=== PATIENT | male | born 1970 | race Hispanic/Latino ===

== ENCOUNTER 2022-11-20 21:18 | Inpatient (IN) | payer BC, SELFPAY ==
[2022-11-20] MEDS ORDERED: ASPIRIN 81 MG CHEWABLE TABLET ONE (22:00)
[2022-11-20] MEDS ORDERED: NA CHLORIDE 0.9% 1,000 ML ONE (22:00)
[2022-11-20 22:10] LABS: Absolute Lymphocytes (CBC) 0.6 K/uL (0.7-4.9); Hematocrit 46.7 % (39.6-49.0); Lymphocytes % 4.9 % (15.3-44.8); MCV 88.8 fL (80-100); MPV 9.2 fL (7.6-11.3); RBC Red Blood Cell Count 5.26 M/uL (4.33-5.43)
[2022-11-20 22:13] LABS: Protime INR 0.99
--- NOTE | 2022-11-20 22:22 | ER ---
Nurse's Notes [facility] Name: Rik Mills Jr Age: 52 yrs Sex: Male : 1970 Arrival Date: 11/20/2022 Time: 21:19 Bed 19 Private MD: Diagnosis: Syncope Near;Essential (primary) hypertension;Chest pain, unspecified;Tachycardia, unspecified;Non ST elevation [place];Hypokalemia;Cocaine abuse Presentation: 11/20 21:26 Chief complaint: Patient states: I took an energy pill around 3:00 before I went to [employer] work. I am working nights right now. I passed out at work. I work at [employer]. I am not sure if i am just dehydrated or what. Coronavirus screen: Vaccine status: Patient reports receiving the 2nd dose of the covid vaccine. Ebola Screen: No symptoms or risks identified at this time. 21:26 Method Of Arrival: Ambulatory 3 21:39 Initial Sepsis Screen: Does the patient meet any 2 criteria? No. Patient's initial bb sepsis screen is negative. Does the patient have a suspected source of infection? No. Patient's initial sepsis screen is negative. Risk Assessment: Do you want to hurt yourself or someone else? Patient reports no desire to harm self or others. Onset of symptoms was November 20, 2022. 21:39 Acuity: CARSON 3 bb Historical: - Allergies: 21:39 No Known Allergies; bb - Home Meds: 21:39 None [Active]; bb - PMHx: 21:39 Hypertensive disorder; bb - PSHx: 21:39 None; bb - Immunization history:: Client reports receiving the Hao \T\ Hao single-dose vaccine. - Social history:: Smoking status: Patient denies any tobacco usage or history of. Patient/guardian denies using alcohol, street drugs. Screenin:46 [facility] ED Fall Risk Assessment (Adult) History of falling in the last 3 months, lg3 including since admission No falls in past 3 months (0 pts). Abuse screen: Denies threats or abuse. Denies injuries from another. Nutritional screening: No deficits noted. Tuberculosis screening: No symptoms or risk factors identified. Assessment: 21:46 General: Appears in no apparent distress. comfortable, Behavior is cooperative, lg3 anxious. Pain: Complains of pain in chest Pain does not radiate. Pain currently is 2 out of 10 on a pain scale. Quality of pain is described as throbbing, Pain began 2 hours ago. Neuro: No deficits noted. Palma Agitation-Sedation Scale (RASS): 0 - Alert and Calm Level of Consciousness is awake, alert, obeys commands, Oriented to person, place, time, situation. Cardiovascular: No deficits noted. Capillary refill < 3 seconds Clubbing of nail beds is absent JVD is absent Patient's skin is warm and dry. Rhythm is sinus tachycardia. Respiratory: No deficits noted. Airway is patent Trachea midline Respiratory effort is even, unlabored, Respiratory pattern is regular, symmetrical. GI: No deficits noted. No signs and/or symptoms were reported involving the gastrointestinal system. Abdomen is round non-distended. : No deficits noted. No signs and/or symptoms were reported regarding the genitourinary system. EENT: No deficits noted. No signs and/or symptoms were reported regarding the EENT system. Derm: No deficits noted. No signs and/or symptoms reported regarding the dermatologic system. Skin is intact, is healthy with good turgor, Skin is dry, Skin is normal. Musculoskeletal: No deficits noted. No signs and/or symptoms reported regarding the musculoskeletal system. Circulation, motion, and sensation intact. Range of motion: intact in all extremities. 22:47 Reassessment: Patient appears in no apparent distress at this time. No changes from lg3 previously documented assessment. Patient and/or family updated on plan of care and expected duration. Pain level reassessed. Patient is alert, oriented x 3, equal unlabored respirations, skin warm/dry/pink. Vital Signs: 21:29 Pulse 109; Resp 16; Temp 98.0(O); Pulse Ox 100% on R/A; kd3 21:40 Weight 81.65 kg; Height 5 ft. 7 in. (170.18 cm) (R); Pain 6/10; bb 21:45 BP 172 / 95; Pulse 111; Resp 17; Pulse Ox 99% on R/A; lg3 22:46 BP 163 / 99; Pulse 113; Resp 16; Pulse Ox 98% on R/A; lg3 23:50 BP 155 / 95; Pulse 80; Resp 18; Pulse Ox 99% on R/A; lg3 21:40 Body Mass Index 28.19 (81.65 kg, 170.18 cm) bb ED Course: 21:19 Patient arrived in ED. am2 21:36 Baljit Joy MD is Attending Physician. rehan 21:39 Triage completed. bb 21:39 Arm band placed on Patient placed in an exam room, on a stretcher, on classroom monitor, bb on pulse oximetry. EKG completed in triage. Results shown to MD. 21:46 Patient has correct armband on for positive identification. Placed in gown. Bed in low lg3 position. Call light in reach. Side rails up X 1. Client placed on continuous cardiac and pulse oximetry monitoring. NIBP monitoring applied. nurse monitoring on. Door closed. Noise minimized. Warm blanket given. 21:46 Inserted saline lock: 20 gauge in right antecubital area, using aseptic technique. lg3 Blood collected. Patient maintains SpO2 saturation greater than 95% on room air. 21:50 Terra Coker, RN is Primary Nurse. lg3 21:50 SARS RAPID Sent. lg3 21:50 Basic Metabolic Panel Sent. lg3 21:50 CBC with Diff Sent. lg3 21:50 LFT's Sent. lg3 21:50 Magnesium Sent. lg3 21:50 NT PRO-BNP Sent. lg3 21:50 PT-INR Sent. lg3 21:50 Troponin HS Sent. lg3 22:21 Martin Ames MD is Hospitalizing Provider. [facility] 22:22 XRAY Chest (1 view) In Process Unspecified. EDMS 22:43 UDS Sent. lg3 23:05 CT Head Brain wo Cont In Process Unspecified. EDMS 23:05 CT Aorta for Dissection In Process Unspecified. EDMS 23:53 No provider procedures requiring assistance completed. Patient admitted, IV remains in lg3 place. Administered Medications: 22:10 Drug: NS 0.9% 1000 ml Route: IV; Rate: 1 bolus; Site: right antecubital; lg3 23:49 Follow up: Response: No adverse reaction; IV Status: Completed infusion; IV Intake: lg3 1000ml 22:10 Drug: Aspirin Chewable Tablet 162 mg Route: PO; lg3 22:43 Follow up: Response: No adverse reaction lg3 22:43 Drug: morphine 4 mg Route: IVP; Infused Over: 4 mins; Site: right antecubital; lg3 23:49 Follow up: Response: No adverse reaction; Pain is decreased lg3 22:43 Drug: Zofran (Ondansetron) 4 mg Route: IVP; Site: right antecubital; lg3 23:49 Follow up: Response: No adverse reaction lg3 22:43 Drug: Lopressor (metoprolol TARTRATE) 50 mg Route: PO; lg3 23:49 Follow up: Response: No adverse reaction lg3 22:43 Drug: Lisinopril 10 mg Route: PO; lg3 23:48 Follow up: Response: No adverse reaction lg3 23:05 Drug: Lovenox (enoxaparin) 1 mg/kg Route: Sub-Q; Site: abdomen; lg3 23:48 Follow up: Response: No adverse reaction lg3 23:05 Drug: Pepcid (famotidine) 20 mg Route: IVP; Site: right antecubital; lg3 23:48 Follow up: Response: No adverse reaction lg3 23:05 Drug: Ativan (LORazepam) 1 mg Route: PO; lg3 23:48 Follow up: Response: No adverse reaction; Anxiety decreased lg3 23:06 Drug: Magnesium Sulfate 1 grams Route: IVPB; Infused Over: 1 hrs; Site: right lg3 antecubital; 23:48 Follow up: Response: No adverse reaction; IV Status: Completed infusion; IV Intake: lg3 100ml 23:06 Drug: Potassium Effervescent Tablet 50 mEq Route: PO; lg3 23:48 Follow up: Response: No adverse reaction lg3 Medication: 22:47 VIS not applicable for this client. lg3 Intake: 23:48 IV: 100ml; Total: 100ml. lg3 23:49 IV: 1000ml; Total: 1100ml. lg3 Outcome: 22:22 Decision to Hospitalize by Provider. rehan 23:53 Admitted to ER Hold. Please see [facility] for further documentation. lg3 23:53 Condition: stable 23:53 Instructed on the need for admit. 11/21 10:47 Patient left the ED. vg1 Signatures: Dispatcher [employer] Baljit Le MD MD cha Ballard, Brenda, RN Shona Klein Lacie RN JINA lg3 Carmen Mills RN JINA vg1 Natalya Lipscomb RN RN kd3
--- NOTE | 2022-11-20 22:22 | EDPHYS ---
Physician Documentation [facility] Name: Rik Mills Jr Age: 52 yrs Sex: Male : 1970 Arrival Date: 11/20/2022 Time: 21:19 Bed 19 Private MD: ED Physician Baljit Joy HPI: 11/20 22:17 This 52 yrs old Male presents to ER via Ambulatory with complaints of Chest rehan Pain, Passed Out Prior To Arrival, Palpitations. 22:17 The patient or guardian reports chest pain that is located primarily in the substernal rehan area, anterior chest wall. Onset: just prior to arrival. The pain does not radiate. Associated signs and symptoms: Pertinent positives: syncope. The chest pain is described as a pressure, squeezing. Severity of pain: At its worst the pain was moderate in the emergency department the pain has improved mildly. The patient has not experienced similar symptoms in the past. Historical: - Allergies: 21:39 No Known Allergies; bb - Home Meds: 21:39 None [Active]; bb - PMHx: 21:39 Hypertensive disorder; bb - PSHx: 21:39 None; bb - Immunization history:: Client reports receiving the Hao \T\ Hao single-dose vaccine. - Social history:: Smoking status: Patient denies any tobacco usage or history of. Patient/guardian denies using alcohol, street drugs. ROS: 22:18 Constitutional: Negative for fever, chills, and weight loss, Eyes: Negative for injury, rehan pain, redness, and discharge, ENT: Negative for injury, pain, and discharge, Neck: Negative for injury, pain, and swelling, Respiratory: Negative for shortness of breath, cough, wheezing, and pleuritic chest pain, Abdomen/GI: Negative for abdominal pain, nausea, vomiting, diarrhea, and constipation, Back: Negative for injury and pain, : Negative for injury, bleeding, discharge, and swelling, MS/Extremity: Negative for injury and deformity, Skin: Negative for injury, rash, and discoloration, Neuro: Negative for headache, weakness, numbness, tingling, and seizure, Psych: Negative for depression, anxiety, suicide ideation, homicidal ideation, and hallucinations, Allergy/Immunology: Negative for hives, rash, and allergies, Endocrine: Negative for neck swelling, polydipsia, polyuria, polyphagia, and marked weight changes, Hematologic/Lymphatic: Negative for swollen nodes, abnormal bleeding, and unusual bruising. 22:18 Cardiovascular: Positive for chest pain, of the chest. Exam: 22:18 Constitutional: This is a well developed, well nourished patient who is awake, alert, rehan and in no acute distress. Head/Face: Normocephalic, atraumatic. Eyes: Pupils equal round and reactive to light, extra-ocular motions intact. Lids and lashes normal. Conjunctiva and sclera are non-icteric and not injected. Cornea within normal limits. Periorbital areas with no swelling, redness, or edema. ENT: Nares patent. No nasal discharge, no septal abnormalities noted. Tympanic membranes are normal and external auditory canals are clear. Oropharynx with no redness, swelling, or masses, exudates, or evidence of obstruction, uvula midline. Mucous membranes moist. Neck: Trachea midline, no thyromegaly or masses palpated, and no cervical lymphadenopathy. Supple, full range of motion without nuchal rigidity, or vertebral point tenderness. No Meningismus. Chest/axilla: Normal chest wall appearance and motion. Nontender with no deformity. No lesions are appreciated. Cardiovascular: Regular rate and rhythm with a normal S1 and S2. No gallops, murmurs, or rubs. Normal PMI, no JVD. No pulse deficits. Respiratory: Lungs have equal breath sounds bilaterally, clear to auscultation and percussion. No rales, rhonchi or wheezes noted. No increased work of breathing, no retractions or nasal flaring. Abdomen/GI: Soft, non-tender, with normal bowel sounds. No distension or tympany. No guarding or rebound. No evidence of tenderness throughout. Back: No spinal tenderness. No costovertebral tenderness. Full range of motion. Skin: Warm, dry with normal turgor. Normal color with no rashes, no lesions, and no evidence of cellulitis. MS/ Extremity: Pulses equal, no cyanosis. Neurovascular intact. Full, normal range of motion. Neuro: Awake and alert, GCS 15, oriented to person, place, time, and situation. Cranial nerves II-XII grossly intact. Motor strength 5/5 in all extremities. Sensory grossly intact. Cerebellar exam normal. Normal gait. Psych: Awake, alert, with orientation to person, place and time. Behavior, mood, and affect are within normal limits. 22:18 ECG was reviewed by the Attending Physician. 11/21 06:51 ECG was reviewed by the Attending Physician. [facility] Vital Signs: 11/20 21:29 Pulse 109; Resp 16; Temp 98.0(O); Pulse Ox 100% on R/A; kd3 21:40 Weight 81.65 kg; Height 5 ft. 7 in. (170.18 cm) (R); Pain 6/10; bb 21:45 BP 172 / 95; Pulse 111; Resp 17; Pulse Ox 99% on R/A; lg3 22:46 BP 163 / 99; Pulse 113; Resp 16; Pulse Ox 98% on R/A; lg3 23:50 BP 155 / 95; Pulse 80; Resp 18; Pulse Ox 99% on R/A; lg3 21:40 Body Mass Index 28.19 (81.65 kg, 170.18 cm) bb MDM: 21:36 Patient medically screened. rehan 22:19 Differential diagnosis: abnormal EKG, acute myocardial infarction, acute pericarditis, rehan anxiety, coronary artery disease Cholelithiasis pancreatitis, peptic ulcer disease, pneumonia, pneumothorax, pulmonary embolus, stable angina, thoracic aortic disection, unstable angina. HEART Score: History: Moderately Suspicious (1), ECG: Non specific repolarization disturbance / LBTB / PM (1), Age: > 45 and < 65 years (1), Risk Factors: > or = 3 Risk factors for atherosclerotic disease (2), [Hypertension] [Active Smoker] [+ Family HX] [Obesity] Troponin: < or = 1 x Normal Limit (0), Total Score = 5. Differential Diagnosis: aortic aneurysm, cardiac arrhythmia, cerebrovascular accident, idiopathic syncope, transient ischemic attack, vasovagal episode. The patient was given aspirin in the Emergency Department. SIS Risk Score: 1 - Three or more CAD risk factors, TOTAL SCORE = 1. Data reviewed: vital signs, nurses notes, lab test result(s), EKG, radiologic studies, CT scan, plain films. Independent interpretation of the following test(s) in the Emergency Department EKG: See my EKG interpretation above. 11/20 21:38 Order name: Basic Metabolic Panel; Complete Time: 03:40 [facility] 11/20 21:38 Order name: CBC with Diff; Complete Time: 22:24 rehan 11/20 21:38 Order name: LFT's; Complete Time: 03:40 rehan 11/20 21:38 Order name: Magnesium; Complete Time: 03:40 rehan 11/20 21:38 Order name: NT PRO-BNP; Complete Time: 03:40 rehan 11/20 21:38 Order name: PT-INR; Complete Time: 22:24 rehan 11/20 21:38 Order name: Troponin HS; Complete Time: 03:40 [facility] 11/20 21:39 Order name: TSH; Complete Time: 03:40 rehan 11/20 21:39 Order name: UDS; Complete Time: 23:24 rehan 11/20 21:39 Order name: SARS RAPID; Complete Time: 23:24 [facility] 11/20 23:52 Order name: T4 Free; Complete Time: 03:40 EDMS 11/21 01:07 Order name: Basic Metabolic Panel EDMS 11/21 01:07 Order name: Basic Metabolic Panel; Complete Time: 06:27 EDDE 11/20 21:38 Order name: XRAY Chest (1 view); Complete Time: 22:34 [facility] 11/20 22:11 Order name: CT Head Brain wo Cont rehan 11/20 22:16 Order name: CT Aorta for Dissection rehan 11/21 01:07 Order name: Echo with Doppler EDMS 11/21 01:07 Order name: Basic Metabolic Panel EDMS 11/21 01:07 Order name: CBC with Automated Diff EDMS 11/21 01:07 Order name: CBC with Automated Diff; Complete Time: 03:40 EDMS 11/21 01:07 Order name: CBC with Automated Diff EDMS 11/21 01:07 Order name: Lipid Profile EDMS 11/21 01:07 Order name: Lipid Profile; Complete Time: 06:27 EDMS 11/21 01:07 Order name: Troponin High Sensitivity EDMS 11/21 01:07 Order name: Troponin High Sensitivity; Complete Time: 06:27 EDMS 11/21 01:07 Order name: Troponin High Sensitivity EDMS 11/21 06:30 Order name: Creatine Phosphokinase EDMS 11/20 21:38 Order name: EKG; Complete Time: 21:39 rehan 11/20 21:38 Order name: Cardiac monitoring; Complete Time: 21:50 [facility] 11/20 21:38 Order name: EKG - Nurse/Tech; Complete Time: 21:50 [facility] 11/20 21:38 Order name: IV Saline Lock; Complete Time: 21:50 [facility] 11/20 21:38 Order name: Labs collected and sent; Complete Time: 21:50 [facility] 11/20 21:38 Order name: O2 Per Protocol; Complete Time: 22:10 [facility] 11/20 21:38 Order name: O2 Sat Monitoring; Complete Time: 22:10 [facility] 11/21 01:07 Order name: Heart Healthy EDMS 11/21 06:28 Order name: EKG; Complete Time: 06:29 [facility] 11/21 06:28 Order name: EKG - Nurse/Tech; Complete Time: 06:57 [facility] EC:18 Rate is 117 beats/min. Rhythm is regular. QRS Dawson is Normal. VT interval is normal. rehan QRS interval is normal. QT interval is normal. No Q waves. T waves are Normal. No ST changes noted. Clinical impression: Sinus tachycardia and No evidence of ischemia. Interpreted by me. Reviewed by me. 11/21 06:51 Rate is 69 beats/min. Rhythm is regular. QRS Dawson is Normal. VT interval is normal. QRS rehan interval is normal. QT interval is normal. No Q waves. T waves are Normal. No ST changes noted. Clinical impression: Normal ECG and No evidence of ischemia. Interpreted by me. Reviewed by me. Administered Medications: 11/20 22:10 Drug: NS 0.9% 1000 ml Route: IV; Rate: 1 bolus; Site: right antecubital; lg3 23:49 Follow up: Response: No adverse reaction; IV Status: Completed infusion; IV Intake: lg3 1000ml 22:10 Drug: Aspirin Chewable Tablet 162 mg Route: PO; lg3 22:43 Follow up: Response: No adverse reaction lg3 22:43 Drug: morphine 4 mg Route: IVP; Infused Over: 4 mins; Site: right antecubital; lg3 23:49 Follow up: Response: No adverse reaction; Pain is decreased lg3 22:43 Drug: Zofran (Ondansetron) 4 mg Route: IVP; Site: right antecubital; lg3 23:49 Follow up: Response: No adverse reaction lg3 22:43 Drug: Lopressor (metoprolol TARTRATE) 50 mg Route: PO; lg3 23:49 Follow up: Response: No adverse reaction lg3 22:43 Drug: Lisinopril 10 mg Route: PO; lg3 23:48 Follow up: Response: No adverse reaction lg3 23:05 Drug: Lovenox (enoxaparin) 1 mg/kg Route: Sub-Q; Site: abdomen; lg3 23:48 Follow up: Response: No adverse reaction lg3 23:05 Drug: Pepcid (famotidine) 20 mg Route: IVP; Site: right antecubital; lg3 23:48 Follow up: Response: No adverse reaction lg3 23:05 Drug: Ativan (LORazepam) 1 mg Route: PO; lg3 23:48 Follow up: Response: No adverse reaction; Anxiety decreased lg3 23:06 Drug: Magnesium Sulfate 1 grams Route: IVPB; Infused Over: 1 hrs; Site: right lg3 antecubital; 23:48 Follow up: Response: No adverse reaction; IV Status: Completed infusion; IV Intake: lg3 100ml 23:06 Drug: Potassium Effervescent Tablet 50 mEq Route: PO; lg3 23:48 Follow up: Response: No adverse reaction lg3 Disposition Summary: 11/20/22 22:22 Hospitalization Ordered Hospitalization Status: Observation rehan Provider: Martin Ames rehan Condition: Fair rehan Problem: new rehan Symptoms: have improved rehan Bed/Room Type: Standard rehan Location: Telemetry/MedSurg (Inpatient)(11/21/22 09:53) Room Assignment: 208(11/21/22 09:53) Diagnosis - Syncope Near rehan - Essential (primary) hypertension rehan - Chest pain, unspecified rehan - Tachycardia, unspecified rehan - Non ST elevation [place] rehan - Hypokalemia rehan - Cocaine abuse rehan Forms: - Medication Reconciliation Form rehan - SBAR form rehan Signatures: Dispatcher [employer] EDMS Angela Garza RN RN mw Anderson, Corey, MD MD cha Ballard, Brenda, RN RN bb Smirch, Shelby, RN RN Miguelito Ball FNP-C LUIS E-Terra Woods RN RN lg3 Corrections: (The following items were deleted from the chart) 23:15 22:22 Telemetry/MedSurg (observation) rehan 23:15 22:22 rehan 23:52 23:27 T4 FREE+C.LAB.BRZ ordered. EDMS EDMS 11/21 23:15 [facility] mw ss 11/21 23:15 ERHOLD- mw ss
--- NOTE | 2022-11-20 22:30 | RAD REPORT ---
EXAM DESCRIPTION: RAD - Chest Single View - 11/20/2022 10:20 pm CLINICAL HISTORY: COUGH Chest pain. COMPARISON: No comparisons FINDINGS: Portable technique limits examination quality. Mild interstitial pulmonary edema. The heart is mildly prominent size. No displaced fractures. IMPRESSION: Mild CHF is possible.
[2022-11-20 22:32] LABS: ALT/SGPT 44 U/L (16-61); Albumin 4.5 g/dL (3.4-5.0); Alkaline Phosphatase 101 U/L (45-117); BUN Blood Urea Nitrogen 16 mg/dL (7-18); Bicarbonate 26 mmol/L (21-32); Bilirubin Direct < 0.1 mg/dL (0-0.2); Bilirubin Total 0.4 mg/dL (0.2-1.0); Glomerular Filtration Rate 81 ml/min (=/>90); Glucose Level 127 mg/dL (74-106); NT PRO-BNP 108 pg/mL (<125); Protein, Total 8.6 g/dL (6.4-8.2); Sodium Level 136 mmol/L (136-145); Thyroid Stimulating Hormone 0.278 uIU/mL (0.358-3.740)
[2022-11-20] MEDS ORDERED: MORPHINE 4 MG/ML SYR ONE (22:35)
[2022-11-20] MEDS ORDERED: lisinopriL 10 MG TAB ONE (22:35)
[2022-11-20] MEDS ORDERED: METOPROLOL TAR 50 MG TAB ONE (22:35)
[2022-11-20] MEDS ORDERED: ONDANSETRON 4 MG/2 ML VIAL ONE (22:35)
[2022-11-20 22:36] LABS: AST/SGOT 43 U/L (15-37); Magnesium 1.7 mg/dL (1.6-2.4); Potassium 3.4 mmol/L (3.5-5.1); Troponin High Sensitivity 66.8 pg/mL (<58.9)
[2022-11-20 22:57] LABS: SARS-CoV-2 Antigen Rapid Res Negative (Negative)
[2022-11-20] MEDS ORDERED: ENOXAPARIN 80 MG/0.8 ML SQ ONE (22:57)
[2022-11-20] MEDS ORDERED: POTASSIUM 25 MEQ EFFERV TAB ONE (22:57)
[2022-11-20] MEDS ORDERED: LORAZEPAM 1 MG TABLET ONE (22:57)
[2022-11-20] MEDS ORDERED: MAGNESIUM SULFATE 1 gm IVPB 1 GM/100 ML BAG IV ONE (22:58)
[2022-11-20] MEDS ORDERED: FAMOTIDINE 20 MG/2 ML VIAL IV ONE (22:58)
[2022-11-20 23:11] LABS: Barbiturates NEGATIVE (NEGATIVE); Benzodiazepines NEGATIVE (NEGATIVE); Cocaine POSITIVE (NEGATIVE); METHAMPHETAM NEGATIVE (NEGATIVE); Methadone NEGATIVE (NEGATIVE); Opiates POSITIVE (NEGATIVE); Phencyclidine NEGATIVE (NEGATIVE); THC Cannibis NEGATIVE (NEGATIVE)
--- NOTE | 2022-11-21 00:36 | P.HP ---
Certification for Inpatient Patient admitted to: Observation With expected LOS: <2 Midnights Patient will require the following post-hospital care: None Practitioner: I am a practitioner with admitting privileges, knowledge of patient current condition, hospital course, and medical plan of care. Services: Services provided to patient in accordance with Admission requirements found in Title 42 Section 412.3 of the Code of Federal Regulations <Miguelito Ball Will Campbell - Last Filed: 11/21/22 00:31> Patient History Date of Service: 11/21/22 Reason for admission: Chest pain, syncope History of Present Illness: 52-year-old male with history of hypertensionunmedicated presents the emergency department for chest pain, syncope. 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 He reports while ambulating upstairs he developed dizziness, chest tight ness followed by syncopal episode. His coworkers reported that he was unconscious for approximately 10 minutes before coming to. He was brought to the emergency department for evaluation his labs are significant for potassium 3.4 high-sensitivity troponin 66.8 TSH 0.278 Free T4 1.05 white blood cell count 12.1 drug screen positive for cocaine, opiates although he did receive morphine in the emergency department. Chest x-ray showed possible mild CHF, CT aorta for dissection was negative for acute aortic changes, pulmonary embolism or other acute findings. Head CT was also negative. EKG without STEMI criteria. ED provider wishes to admit under observation for chest pain, syncope. Patient counseled on need for cessation of energy drinks, cocaine. He reports he did take cocaine 1 time on the a couple of days ago but has not used since then. - Past Medical/Surgical History -: Hypertension -: Left hand surgery Psychosocial/ Personal History: Patient lives at home with his significant other - Family History Family History: Reviewed- Non-Contributory - Social History Smoking Status: Current some day smoker Alcohol use: No CD- Drugs: Yes Caffeine use: Yes Place of Residence: Home <SivaMiguelito sánchez - Last Filed: 11/21/22 00:31> Date of Service: 11/21/22 <Martin Ames - Last Filed: 11/21/22 15:55> Review of Systems 10-point ROS is otherwise unremarkable Respiratory: Shortness of Breath, SOB with Excertion Cardiovascular: Chest Pain, Light Headedness, Other (Syncope) <Miguelito Ball - Last Filed: 11/21/22 00:31> Physical Examination - Physical Exam General: Alert, In no apparent distress, Oriented x3 HEENT: Atraumatic, PERRLA, Mucous membr. moist/pink, EOMI, Sclerae nonicteric Neck: Supple, 2+ carotid pulse no bruit, No LAD, Without JVD or thyroid abnormality Respiratory: Clear to auscultation bilaterally, Normal air movement Cardiovascular: Regular rate/rhythm, Normal S1 S2 Gastrointestinal: Normal bowel sounds, No tenderness Musculoskeletal: No tenderness Integumentary: No rashes Neurological: Normal speech, Normal strength at 5/5 x4 extr, Normal tone, Normal affect - Studies Laboratory Data (last 24 hrs) 11/20/22 21:44: PT 10.9, INR 0.99 11/20/22 21:44: WBC 12.10 H, Hgb 15.3, Hct 46.7, Plt Count 251 11/20/22 21:44: Sodium 136, Potassium 3.4 L, BUN 16, Creatinine 1.09, Glucose 127 H, Magnesium 1.7, Total Bilirubin 0.4, AST 43 H, ALT 44, Alkaline Phosphata se 101 <Miguelito Ball - Last Filed: 11/21/22 00:31> - Studies Laboratory Data (last 24 hrs) 11/21/22 02:24: Sodium 141 D, Potassium 4.7 D, BUN 13, Creatinine 0.89, Glucose 116 H, Triglycerides 68, Cholesterol 191, HDL Cholesterol 63 H, Cholesterol/HDL Ratio 3.03 11/21/22 02:24: WBC 8.50, Hgb 13.9 D, Hct 42.4, Plt Count 248 11/20/22 21:44: PT 10.9, INR 0.99 11/20/22 21:44: WBC 12.10 H, Hgb 15.3, Hct 46.7, Plt Count 251 11/20/22 21:44: Sodium 136, Potassium 3.4 L, BUN 16, Creatinine 1.09, Glucose 127 H, Magnesium 1.7, Total Bilirubin 0.4, AST 43 H, ALT 44, Alkaline Phosphatase 101 <Martin Ames - Last Filed: 11/21/22 15:55> Assessment and Plan - Plan Assessment: Chest pain, syncope Hypertension Cocaine abuse Plan: Chest pain, syncope Trend troponin, monitor on telemetry, given aspirin, therapeutic Lovenox in ED. Hold beta-colleen given cocaine use. Cardiology consult, echocardiogram ordered. Hypertension Patient reports he was previously told he had hypertension but was never started on any medications. Lisinopril ordered. Monitor blood pressure throughout hospitalization. Cocaine abuse Counseled extensively on need for cessation DVT PPX: Therapeutic Lovenox Code status: Full Discharge Plan: Home Plan to discharge in: 24 Hours - Advance Directives Does patient have a Living Will: No Does patient have a Durable POA for Healthcare: No - Code Status/Comfort Care Code Status Assessed: Yes (Full code) Critical Care: No Time Spent Managing Pts Care (In Minutes): 55 <Miguelito Ball - Last Filed: 11/21/22 00:31> - Plan Patient seen and examined on rounds this morning Reports feeling better, no more syncopal episodes, continues with some chest pain/tenderness, Troponin trended up, then back down to 50 Drink 2 energy drinks, followed by caffeine/ephedriizine pill Discussed with cardiology Start heparin drip, for NSTEMI, plan for cardiac catheterization tomorrow <Martin Ames - Last Filed: 11/21/22 15:55>
[2022-11-21] MEDS ORDERED: ONDANSETRON 4 MG/2 ML VIAL IV PRN (01:05)
[2022-11-21] MEDS ORDERED: MORPHINE 2 MG/ML SYR ONE ×2 (01:17→10:06)
[2022-11-21] MEDS: MORPHINE 2 MG/ML SYR IV PRN ×3 (01:21→18:19)
[2022-11-21 01:30] VITALS: BMI 28.1
[2022-11-21 02:57] LABS: Absolute Lymphocytes (CBC) 0.9 K/uL (0.7-4.9); Hematocrit 42.4 % (39.6-49.0); Lymphocytes % 10.7 % (15.3-44.8); MPV 8.8 fL (7.6-11.3); RBC Red Blood Cell Count 4.77 M/uL (4.33-5.43)
[2022-11-21 03:38] LABS: Potassium 4.7 mmol/L (3.5-5.1)
[2022-11-21 04:06] LABS: Troponin High Sensitivity 142.2 pg/mL (<58.9)
[2022-11-21] MEDS ORDERED: INFLUENZA VACCINE (for 6+ mo) 0.5 ML DOSE IMVAC ONE (08:00)
[2022-11-21] MEDS: ASPIRIN EC 81 MG TAB PO SCH (09:00)
[2022-11-21] MEDS ORDERED: ENOXAPARIN 80 MG/0.8 ML SQ SCH (09:00)
[2022-11-21] MEDS: lisinopriL 10 MG TAB PO SCH (09:00)
[2022-11-21] MEDS ORDERED: ENOXAPARIN 80 MG/0.8 ML SQ ONE (10:06)
[2022-11-21] MEDS ORDERED: ONDANSETRON 4 MG/2 ML VIAL ONE (10:06)
[2022-11-21] MEDS ORDERED: ASPIRIN EC 81 MG TAB PO ONE (10:06)
[2022-11-21] MEDS ORDERED: lisinopriL 10 MG TAB ONE (10:13)
--- NOTE | 2022-11-21 12:39 | RAD REPORT ---
EXAM DESCRIPTION: CT - Head Brain Wo Cont - 11/21/2022 6:39 am CLINICAL HISTORY: 52 years, Male, Syncope, recurrent COMPARISON: None. FINDINGS: Multiple transaxial tomograms of the brain were obtained from the base of the skull to the vertex without contrast. 2-D multiplanar reformats and the coronal and sagittal plane were performed and reviewed. This exam was performed according to our departmental dose-optimization protocol, which includes auto mated exposure control, adjustment of the mA and/or kV according to patient size and/or use of iterat sofiya reconstruction technique. Brain parenchyma as well as the fonseca and white matter differentiation demonstrate to be unremarkable. There is no midline shift and/or mass effect. There is no evidence for acute hemorrhage. No focal ar eas of hypodensities. Lateral ventricles and cisterns displace normal appearance. No intra or ext ra axial fluid collections were seen. The calvarium is intact with no evidence for fracture. The visu alized portions of the paranasal sinuses and orbits demonstrate to be clear. IMPRESSION: No acute intracranial hemorrhage identified. Unremarkable CT scan of the head without contrast. Electronically signed by: Edgardo Carrasco MD 11/20/2022 11:21 PM [employer] Due to temporary technical issues with the PACS/Fluency reporting system, reports are being signed by the in house radiologists without review as a courtesy to insure prompt reporting. The interpreting radiologist is fully responsible for the content of the report.
--- NOTE | 2022-11-21 12:41 | RAD REPORT ---
EXAM DESCRIPTION: CT - Angio Aorta For Dissection - 11/21/2022 6:38 am CLINICAL HISTORY: 52 years, Male, cp COMPARISON: None. TECHNIQUE: Multiple transaxial tomograms were performed from the thoracic and abdominal aorta from t he lung apex to the ischial tuberosities performed utilizing 3 mm slice thickness at 3 mm interval re construction after the administration of large bolus of IV contrast for complete opacification of the thoracic, abdominal aorta and iliac arteries. 2-D and 3-D multiplanar reformats, volume rendering technique and maximum intensity projection images were generated and reviewed. This exam was performed according to our departmental dose-optimization protocol, which includes auto mated exposure control, adjustment of the mA and/or kV according to patient size and/or use of iterat sofiya reconstruction technique. FINDINGS: Thoracic aorta: The thoracic aorta demonstrate normal opacification. There is no evidence for aneurysm/or significant dissection. There is normal branching pattern of the great vessels with no evidence for significant stenosis/or occlusion proximal aspect. Abdominal aorta: The abdominal aorta demonstrate to be within normal limits. There is no evidence for significant aneu rysm/or dissection. Bilateral iliac arteries demonstrate normal appearance. The celiac trunk, superio r mesenteric artery and inferior mesenteric artery demonstrate normal appearance with no evidence for stenosis/or occlusion. Chest: The lung parenchyma demonstrate to be clear. Minimal dependent atelectatic changes. No significant pu lmonary nodules and/or masses. The trachea mainstem bronchus demonstrate to be unremarkable. There is no pleural/or pericardial effusions. The heart is normal in size. The central pulmonary arteries dem onstrate to be unremarkable with no significant filling defects. There is no significant mediastinal and/or hilar lymphadenopathy. The axillary regions demonstrate to be clear. The bone windows demonstr ate no significant skeletal lesions. Abdomen and pelvis: The liver demonstrated decreased attenuation corresponding to fatty dictation. Otherwise the liver, g allbladder, spleen, adrenal glands, pancreas demonstrate to be unremarkable. The kidneys demonstrate normal uptake of contrast media with no evidence for hydronephrosis/or nephro lithiasis. The unopacified stomach, small bowel and large bowel demonstrate to be within normal limits. There is no evidence for bowel dilatation/or free air. The appendix is unremarkable. There is minimal diverti culosis within the sigmoid colon. The urinary bladder demonstrate to be within normal limits. The prostate gland is normal. There is no retroperitoneal lymphadenopathy and/or ascites. The bone windows demonstrate no significant skeletal lesions. IMPRESSION: No evidence for significant aneurysm/or dissection of the thoracic or abdominal aorta. Fatty dictation of the liver. Minimal diverticulosis within the sigmoid colon. Electronically signed by: Edgardo Carrasco MD 11/20/2022 11:25 PM TRAVEL CONSULTANT Due to temporary technical issues with the PACS/Fluency reporting system, reports are being signed by the in house radiologists without review as a courtesy to insure prompt reporting. The interpreting radiologist is fully responsible for the content of the report.
[2022-11-21] MEDS ORDERED: HEPARIN 10,000 UNIT/10 ML VIAL IV ONE (15:03)
[2022-11-21] MEDS ORDERED: HEPARIN/D5W 25,000 UNIT/500 ML BAG IV PRN (15:03)
[2022-11-21 15:54] LABS: Protime INR 1.05
--- NOTE | 2022-11-21 19:32 | CON ---
Date of Consultation: 11/21/2022 Reason For Consultation: Chest pain with elevated troponin. History Of Present Illness: This 52-year-old male with history of hypertension presented to the [facility] room with chest pain. He said while working, he became sweaty, had a chest pressure and then f elt very dizzy and then he passed out. He had some shortness of breath with it. Pain was pressure l warner, radiates to the neck and left upper extremity. No nausea, vomiting, or diaphoresis. Past Medical History: Hypertension. Medications: Refer to reconciliation sheet for detailed list. Allergies: NO KNOWN DRUG ALLERGIES. Family History: No premature coronary artery disease or cancer. Social History: He is an active smoker. Does not drink or use any drugs. Review of Systems: All systems reviewed and they were negative except as mentioned in HPI. Physical Examination: Vital Signs: Temperature is 98.4, pulse 75, breathing at 18, blood pressure is 145/92, and saturatin g 98%. General: A pleasant middle-aged male, in no apparent distress. Head And Neck: Pupils are equal and reactive to light. Intact eye movements. No JVD. No cervical lymphadenopathy. Neck is supple. Thyroid is not enlarged. Lungs: Clear to auscultation bilaterally. No rhonchi, wheezing, or crackles. No accessory muscle u se. Heart: Regular rate and rhythm. No extra sounds. Abdomen: Soft, nontender. Bowel sounds positive. No organomegaly. No masses or hernia. No rigidi ty or rebound. Extremities: No edema, clubbing, or cyanosis. Intact pulses. Skin: No rash or nodules. Psychiatric: Alert, awake, and oriented x3. No acute focal deficits appreciated. Investigations: BUN is 13, creatinine 0.89. Troponins 142 and then dropped down to 55. Hemoglobin is 13.9. Assessment And Recommendation: 1.Non-ST elevation myocardial infarction, very typical pain. Continue heparin and aspirin. Troponi ns trending down. Obtain echocardiogram. Keep n.p.o. past midnight for coronary angiogram tomorrow. 2.Hypertension. Blood pressure is improving. Continue lisinopril. 3.Dyslipidemia. Continue statin. SR/MODL Voice ID: [id number] Report ID: [id number]
[2022-11-21] MEDS ORDERED: ATORVASTATIN 40 MG TAB PO SCH (21:00)
[2022-11-22] MEDS: MORPHINE 2 MG/ML SYR IV PRN ×3 (00:09→13:49)
[2022-11-22 05:35] LABS: Absolute Lymphocytes (CBC) 2.1 K/uL (0.7-4.9); Hematocrit 45.2 % (39.6-49.0); Lymphocytes % 35.1 % (15.3-44.8); MCV 88.7 fL (80-100); MPV 8.9 fL (7.6-11.3); RBC Red Blood Cell Count 5.09 M/uL (4.33-5.43)
[2022-11-22 05:48] LABS: Potassium 3.7 mmol/L (3.5-5.1)
[2022-11-22] MEDS ORDERED: NA CHLORIDE 0.9% 1,000 ML ONE (05:51)
[2022-11-22] MEDS: ASPIRIN EC 81 MG TAB PO SCH (06:37)
--- NOTE | 2022-11-22 06:48 | ECHO ---
HEIGHT: 5 ft 7 in WEIGHT: 180 lb 0.119 oz DATE OF STUDY: 11/21/[address]: Miguelito Ball NP 2-DIMENSIONAL: YES M.MODE: YES DOPPLER: YES COLOR FLOW: YES TDS: PORTABLE: YES DEFINITY: BUBBLE STUDY: DIAGNOSIS: CHEST PAIN CARDIAC HISTORY: CATHERIZATION: SURGERY: PROSTHETIC VALVE: PACEMAKER: MEASUREMENTS (cm) DIASTOLIC (NORMALS) SYSTOLIC (NORMALS) IVSd 0.9 (0.6-1.2) LA Diam 3.8 (1.9-4.0) LVEF 60% LVIDd 5.2 (3.5-5.7) LVIDs 3.8 (2.0-3.5) %FS 28% LVPWd 1.1 (0.6-1.2) Ao Diam 2.7 (2.0-3.7) 2 DIMENSIONAL ASSESSMENT: RIGHT ATRIUM: NORMAL LEFT ATRIUM: NORMAL RIGHT VENTRICLE: NORMAL LEFT VENTRICLE: NORMAL TRICUSPID VALVE: MILD TRICUSPID REGURGITATION MITRAL VALVE: MILD MITRAL REGURGITATION PULMONIC VALVE: NORMAL AORTIC VALVE: NORMAL PERICARDIAL EFFUSION: NONE AORTIC ROOT: NORMAL LEFT VENTRICULAR WALL MOTION: NORMAL DOPPLER/COLOR FLOW: SEE BELOW COMMENTS: 1. NORMAL LEFT VENTRICULAR EJECTION FRACTION 55-60% 2. NORMAL WALL MOTION 3. MILD TRICUSPID REGURGITATION 4. MILD MITRAL REGURGITATION TECHNOLOGIST: LINDA GOLDSMITH
[2022-11-22] MEDS: lisinopriL 10 MG TAB PO SCH (08:17)
[2022-11-22] MEDS ORDERED: FENTANYL CITR 100 MCG/2 ML ONE (11:47)
[2022-11-22] MEDS ORDERED: LIDOCAINE 1% 20 ML MDV ONE (11:47)
[2022-11-22] MEDS ORDERED: MIDAZOLAM HCL 2 MG/2 ML INJ ONE (11:48)
[2022-11-22] MEDS ORDERED: HEPARIN 5000 UNIT/ML 1 ML VIAL ONE (11:48)
[2022-11-22] MEDS ORDERED: VERAPAMIL HCL 10 MG/4 ML VIAL IV ONE (11:48)
[2022-11-22] MEDS ORDERED: ATROPINE SULF 1 MG/10 ML SYR IV ONE (11:49)
[2022-11-22] MEDS ORDERED: HEPA 1000U/500MLS 2,000 UNIT/1,000 ML BAG IV ONE (11:49)
[2022-11-22] MEDS ORDERED: HEPARIN 10,000 UNIT/10 ML VIAL IV ONE (11:49)
[2022-11-22] MEDS ORDERED: NITROGLYCERIN 100 MCG/ML SYR (for cath lab use only) IV ONE (11:50)
[2022-11-22] MEDS ORDERED: NA CHLORIDE 0.9% 500 ML ONE (11:57)
[2022-11-22 12:02] VITALS: TEMP 98.2
[2022-11-22] MEDS ORDERED: MORPHINE 4 MG/ML SYR ONE (13:44)
--- NOTE | 2022-11-22 13:47 | PN ---
Date of Progress Note: 11/22/2022 Subjective: The patient was seen at bedside. Does not have any further chest pain. Completely asym ptomatic. Review of Systems: No chest pain, shortness of breath, orthopnea, cough, nausea, vomiting, diarrhea. All other systems reviewed and they were negative. Physical Examination: Vital Signs: Reviewed. Head and Neck: Pupils are equal, reactive to light. Intact eye movements. No JVD. No cervical lym phadenopathy. Neck is supple. Thyroid is not enlarged. Lungs: Clear to auscultation bilaterally. No rhonchi, wheezing, or crackles. No accessory muscle u se. Heart: Regular rate and rhythm. No extra sounds. Abdomen: Soft, nontender. Bowel sounds positive. No organomegaly. No masses or hernia. No rigidi ty or rebound. Extremities: No edema, clubbing, or cyanosis. Intact pulses. Skin: No rash. Neurologic: Alert, awake, oriented x3. No acute focal deficits appreciated. Investigations: Troponins normalized. Rest of labs reviewed. Assessment And Recommendations: 1.Non-ST elevation myocardial infarction, typical symptoms. He is n.p.o., plan for coronary angiogr am today. Further recommendations accordingly. 2.Cocaine abuse. The patient was counseled. /MODL Voice ID: [id number] Report ID: [id number]
--- NOTE | 2022-11-22 13:47 | OP ---
Date of Procedure: 11/22/2022 Surgeon: TYE GARZA Procedure Performed: Selective coronary angiogram. Indication: Non-ST elevation myocardial infarction. Access: Right radial artery 6-Macanese closed with TR band. Complications: None. Bleeding: Less than 10 mL. Anesthesia: No sedation was given. Description Of Procedure: After risks, benefits, and alternatives were explained, the patient agreed to procedure and signed informed consent. The patient was brought into the cardiac catheterization laboratory, prepped and draped in the usual sterile fashion. Then, I accessed right radial artery us ing pediatric micropuncture kit, placed a 6-Macanese Slender sheath and took 5-Macanese [place] 4.0 cathete r into the aortic root, engaged left main and then right coronary artery, took standard views and rem kaykay the catheter and sheath, placed TR band with good hemostasis. Findings: 1.Left main; very large and normal. 2.LAD, large and normal, normal diagonal branches. 3.Left circumflex; large and normal, normal OM branches. 4.RCA; large and dominant and normal. Conclusion: Normal coronary arteries. Recommendations: The patient was counseled against using cocaine and lifestyle modifications are rec ommended. SR/MODL Voice ID: [id number] Report ID: [id number]
[2022-11-22] MEDS ORDERED: ACETAMINOPHEN 325 MG TABLET ONE (13:50)
[2022-11-22 14:07] VITALS: O2SAT 100
[2022-11-22 14:37] VITALS: BP 128/70
--- NOTE | 2022-11-25 21:35 | P.DS ---
Admission Date: 11/21/22 Discharge Date: 11/22/22 Disposition: ROUTINE DISCHARGE Discharge Condition: GOOD Reason for Admission: Chest pain, syncope Consultations: Cardiology - Dr. Park Brief History of Present Illness: 52-year-old male with history of hypertensionunmedicated presents the emergency department for chest pain, syncope. 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 He reports while ambulating upstairs he developed dizziness, chest tightness followed by syncopal episode. His coworkers reported that he was unconscious for approximately 10 minutes before coming to. He was brought to the emergency department for evaluation his labs are significant for potassium 3.4 high-sensitivity troponin 66.8 TSH 0.278 Free T4 1.05 white blood cell count 12.1 drug screen positive for cocaine, opiates although he did receive morphine in the emergency department. Chest x-ray showed possible mild CHF, CT aorta for dissection was negative for acute aortic changes, pulmonary embolism or other acute findings. Head CT was also negative. EKG without STEMI criteria. ED provider wishes to admit under observation for chest pain, syncope. Patient counseled on need for cessation of energy drinks, cocaine. He reports he did take cocaine 1 time on the a couple of days ago but has not used since then. Hospital Course: Problem List Chest pain, syncope secondary to energy drink toxicity Hypertension Cocaine abuse Patient presented to ER after episode of palpitations and syncopal event at work. Troponin slightly increased. Cardiology consulted and patient underwent cardiac catheterization which revealed normal coronary arteries, ruling out acute coronary syndrome / CT. Patient's episode is most likely a result of the multiple energy drinks / energy pill, and cocaine use. Echocardiogram and CT chest were normal. Recommend avoidance of these. Stable for discharge home. Follow up with Cardiology in a few weeks, for consideration of an ambulatory heart monitor. Recommend rest for next ~3-4 days before returning to work without restrictions. Vital Signs/Physical Exam: Temp Pulse Resp BP Pulse Ox 98.2 F 64 15 128/70 98 11/22/22 12:00 11/22/22 14:35 11/22/22 14:35 11/22/22 14:35 11/22/22 13:49 General: Alert, In no apparent distress, Oriented x3 HEENT: EOMI, Sclerae nonicteric Neck: Supple, No LAD Respiratory: Clear to auscultation bilaterally, Normal air movement Cardiovascular: No edema, Regular rate/rhythm Gastrointestinal: Soft and benign, Non-distended, No tenderness Musculoskeletal: No contractures, No tenderness Integumentary: No rashes, No significant lesion Neurological: Normal speech, Normal strength at 5/5 x4 extr, Normal affect Laboratory Data at Discharge: WBC 6.10 K/uL (4.3-10.9) 11/22/22 04:37 Hgb 14.9 g/dL (13.6-17.9) 11/22/22 04:37 Hct 45.2 % (39.6-49.0) 11/22/22 04:37 Plt Count 264 K/uL (152-406) 11/22/22 04:37 PT 11.5 SECONDS (9.5-12.5) 11/21/22 15:38 INR 1.05 11/21/22 15:38 APTT 54.5 SECONDS (24.3-36.9) H 11/22/22 04:37 Sodium 140 mmol/L (136-145) 11/22/22 04:37 Potassium 3.7 mmol/L (3.5-5.1) D 11/22/22 04:37 BUN 18 mg/dL (7-18) 11/22/22 04:37 Creatinine 1.11 mg/dL (0.70-1.30) 11/22/22 04:37 Glucose 116 mg/dL (74-106) H 11/22/22 04:37 Magnesium 1.7 mg/dL (1.6-2.4) 11/20/22 21:44 Total Bilirubin 0.4 mg/dL (0.2-1.0) 11/20/22 21:44 AST 43 U/L (15-37) H 11/20/22 21:44 ALT 44 U/L (16-61) 11/20/22 21:44 Alkaline Phosphatase 101 U/L (45-117) 11/20/22 21:44 Triglycerides 68 mg/dL (<150) 11/21/22 02:24 Cholesterol 191 mg/dL (<200) 11/21/22 02:24 HDL Cholesterol 63 mg/dL (40-60) H 11/21/22 02:24 Cholesterol/HDL Ratio 3.03 11/21/22 02:24 Home Medications: Codeine/APAP [Tylenol W/Codeine #3 tab] 1 tab PO Q8HP PRN #10 tab 11/22/22 New Medications: Codeine/APAP [Tylenol W/Codeine #3 tab] 1 tab PO Q8HP PRN #10 tab PRN Reason: Pain Physician Discharge Instructions: Patient presented to ER after episode of palpitations and syncopal event at work. Troponin slightly increased. Cardiology consulted and patient underwent cardiac catheterization which revealed normal coronary arteries, ruling out acute coronary syndrome / CT. Patient's episode is most likely a result of the multiple energy drinks / energy pill, and cocaine use. Echocardiogram and CT chest were normal. Recommend avoidance of these. Stable for discharge home. Follow up with Cardiology in a few weeks, for consideration of an ambulatory heart monitor. Recommend rest for next ~3-4 days before returning to work without restrictions. Followup: NONE,NONE [Primary Care Provider] - 1 Week (Please call to schedule an appointment. ) Time spent managing pt's care (in minutes): 45
== END 2022-11-22 16:41 | disposition home or self-care (01) | DRG 917 ==
LOC: ER 21:18 → ERHOLD 11-21 01:18 → 2ND 11-21 10:34 → OBSVTOIN 11-21 12:47
PROVIDERS: ADMIT Hospitalist; ATTEND Hospitalist
PROC: 4A023N7 Measurement of Cardiac Sampling and Pressure, Left Heart, Percutaneous Approach (ICD-10-PCS; principal; 2022-11-22)
PROC: B2111ZZ Fluoroscopy of Multiple Coronary Arteries using Low Osmolar Contrast (ICD-10-PCS; 2022-11-22)
DX: T40.5X1A Poisoning by cocaine, accidental (unintentional), initial encounter (principal); I21.4 Non-ST elevation (NSTEMI) myocardial infarction; I10 Essential (primary) hypertension; E87.6 Hypokalemia; F14.10 Cocaine abuse, uncomplicated; E78.5 Hyperlipidemia, unspecified; R55 Syncope and collapse; F17.200 Nicotine dependence, unspecified, uncomplicated; R00.0 Tachycardia, unspecified; Z79.899 Other long term (current) drug therapy; Z20.822 Contact with and (suspected) exposure to COVID-19
CPT/HCPCS: 36415; 70450; 71045; 71275; 74175; 76937; 80048; 80061; 80076; 80307; 82550; 83735; 83880; 84439; 84443; 84484; 85025; 85610; 85730; 87811; 93005; 93306; 93454; 96361; 96365; 96372; 96375; 99285; C1893; G0378; J0461; J1644; J1650; J2001; J2250; J2270; J2405; J3010; J3475; J7030; J7040; Q9966; Q9967